=== PATIENT | female | born 1995 | race Caucasian/White ===

== ENCOUNTER 2017-06-12 07:58 | Observation (INO) | payer OTHER ==
[2017-06-12] VITALS (7 sets, daily range): BP systolic 105–130; BP diastolic 59–78; PULSE 75–112; RESP 16–24; TEMP 97.4–98.2; O2SAT 97–99
[~2017-06-12 07:58] MED LIST: GLUCTAB PO; IBUP800T23 PO; LEVO.025 PO; TYLE3 PO; ZOFR4TAB3 PO
[2017-06-12] MEDS ORDERED: ONDANSETRON HCL 4 MG/2 ML VIAL ONE (08:11)
[2017-06-12] MEDS ORDERED: LEVO25TA4 PO (08:21)
[2017-06-12] MEDS ORDERED: MELA5TAB15 PO (08:25)
--- NOTE | 2017-06-12 08:29 | PD ---
HPI Chief Complaint: GI Complaint Time Seen by Provider: 08:17 Travel History International Travel<30 days: No Contact w/Intl Traveler<30days: No Traveled to known affect area: No History of Present Illness HPI 22yo F with PMH of hypothyroidism and PCOS presents to the ED with c/o sudden onset of nausea, room spinning and palpitations when she was taking medication out today. 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 Had episode of NBNB vomiting. Denies any fever, cough, chest pain, sob, dysuria, vaginal discharge, focal weakness or numbness. Pt states she is on her menstrual period. Did not eat breakfast today. PFSH Past Medical History Blood Disorders: No Cancer: No Cardiovascular Problems: Yes High Cholesterol: Yes Developmental Delay: No Diabetes: No Diminished Hearing: No Endocrine: Yes Gastrointestinal Disorders: Yes (DIARRHEA/CONSTIPATION) Genitourinary: Yes (UTI'S) Hepatitis: No Hypertension: No Immune Disorder: No Medical other: Yes (POLYCYSTIC OVARIAN CYST) Musculoskeletal: No Neurologic: No Psychiatric: No Reproductive: Yes (POLYCYSTIC OVARY DISEASE) Respiratory: No Immunizations Current: Yes (MENINGITIS) Thyroid Disease: Yes Tetanus Vaccination: > 5 Years Influenza Vaccination: Yes ?: Not LMP: 06/11/17 Ovarian Cysts: Yes (POLYCYSTIC) Past Surgical History Cholecystectomy: Yes Other Surgery: Yes (nathan) Social History Alcohol Use: No Tobacco Use: No Substance Use: No Allergies-Medications (Allergen,Severity, Reaction): Coded Allergies: Vancomycin (Verified Allergy, Severe, Hives, 06/12/17) Neosporin (Unverified Allergy, Unknown, 06/12/17) Reported Meds & Prescriptions Reported Meds & Active Scripts Active Reported Melatonin 5 Mg Tab 5 Mg PO HS Levothyroxine (Levothyroxine Sodium) 25 Mcg Tab 25 Mcg PO DAILY Review of Systems Except as stated in HPI: all other systems reviewed are Neg Physical Exam Narrative GENERAL: 22yo F in mild distress. SKIN: Focused skin assessment warm/dry. HEAD: Atraumatic. Normocephalic. EYES: Pupils equal and round at 3mm bilaterally. No nystagmus. No scleral icterus. No injection or drainage. ENT: No nasal bleeding or discharge. Mucous membranes pink and moist. NECK: Trachea midline. No JVD. CARDIOVASCULAR: Regular rate and rhythm. No murmur appreciated. RESPIRATORY: No accessory muscle use. Clear to auscultation. Breath sounds equal bilaterally. GASTROINTESTINAL: Abdomen soft, non-tender, nondistended. MUSCULOSKELETAL: No obvious deformities. No clubbing. No cyanosis. No edema. NEUROLOGICAL: Awake and alert. No obvious cranial nerve deficits. Motor grossly within normal limits. Normal speech. PSYCHIATRIC: Appropriate mood and affect; insight and judgment normal. Data Data Last Documented VS Vital Signs Date Time Temp Pulse Resp B/P Pulse Ox O2 Delivery O2 Flow Rate FiO2 06/12/17 10:33 78 18 121/78 99 Room Air 06/12/17 08:00 97.4 Orders Ondansetron Inj (Zofran Inj) (06/12/17 08:11) Electrocardiogram (06/12/17 ) Ed Urine Pregnancytest Poc (06/12/17 08:23) Urinalysis - C+S If Indicated (06/12/17 08:23) Complete Blood Count With Diff (06/12/17 08:23) Comprehensive Metabolic Panel (06/12/17 08:23) Lipase (06/12/17 08:23) Sodium Chlor 0.9% 1000 Ml Inj (Ns 1000 M (06/12/17 08:30) Ondansetron Inj (Zofran Inj) (06/12/17 08:30) Meclizine (Antivert) (06/12/17 08:30) Urine Culture (06/12/17 08:45) Troponin I (06/12/17 09:07) Ceftriaxone Inj (Rocephin Inj) (06/12/17 10:15) Ondansetron Inj (Zofran Inj) (06/12/17 10:30) Metoclopramide Inj (Reglan Inj) (06/12/17 11:15) Place In Observation (06/12/17 ) Code Status (06/12/17 12:14) Vital Signs (Adult) Q4H (06/12/17 12:14) Activity Oob With Assistance (06/12/17 12:14) Engraver Copperplate / Telemetry .CONTINUOUS (06/12/17 12:14) Diet Regular Basic (06/12/17 Lunch) Sodium Chloride 0.9% Flush (Ns Flush) (06/12/17 12:15) Sodium Chloride 0.9% Flush (Ns Flush) (06/12/17 21:00) Acetaminophen (Tylenol) (06/12/17 12:15) Ondansetron Inj (Zofran Inj) (06/12/17 12:15) Temazepam (Restoril) (06/12/17 12:15) Basic Metabolic Panel (Bmp) (06/13/17 06:00) Complete Blood Count With Diff (06/13/17 06:00) Chest, Single Ap (06/12/17 12:14) Electrocardiogram (06/12/17 12:14) Pt Request For Service (06/12/17 12:14) Scd Bilateral/Knee High APOLONIA.BID (06/12/17 12:14) Naloxone Inj (Narcan Inj) (06/12/17 12:15) Magnesium Hydroxide Liq (Milk Of Magnesi (06/12/17 12:15) Beta Hcg (Quant/Titer) (06/12/17 12:14) Meclizine (Antivert) (06/12/17 14:00) Levothyroxine (Synthroid) (06/13/17 06:00) Melatonin (Melatonin) (06/12/17 21:00) Ns + Kcl 20 Meq Inj (Ns + Kcl 20 Meq Inj (06/12/17 12:30) Admit Order (Ed Use Only) (06/12/17 12:22) Labs Laboratory Tests Test 06/12/17 06/12/17 08:20 08:45 White Blood Count 8.6 TH/MM3 Red Blood Count 5.51 MIL/MM3 Hemoglobin 14.9 GM/DL Hematocrit 44.3 % Mean Corpuscular Volume 80.4 FL Mean Corpuscular Hemoglobin 27.1 PG Mean Corpuscular Hemoglobin 33.7 % Concent Red Cell Distribution Width 13.6 % Platelet Count 386 TH/MM3 Mean Platelet Volume 6.9 FL Neutrophils (%) (Auto) 62.7 % Lymphocytes (%) (Auto) 29.7 % Monocytes (%) (Auto) 4.4 % Eosinophils (%) (Auto) 2.7 % Basophils (%) (Auto) 0.5 % Neutrophils # (Auto) 5.4 TH/MM3 Lymphocytes # (Auto) 2.6 TH/MM3 Monocytes # (Auto) 0.4 TH/MM3 Eosinophils # (Auto) 0.2 TH/MM3 Basophils # (Auto) 0.0 TH/MM3 CBC Comment DIFF FINAL Differential Comment Sodium Level 137 MEQ/L Potassium Level 3.9 MEQ/L Chloride Level 101 MEQ/L Carbon Dioxide Level 23.5 MEQ/L Anion Gap 13 MEQ/L Blood Urea Nitrogen 10 MG/DL Creatinine 0.72 MG/DL Estimat Glomerular Filtration 100 ML/MIN Rate Random Glucose 90 MG/DL Calcium Level 9.6 MG/DL Total Bilirubin 0.3 MG/DL Aspartate Amino Transf 18 U/L (AST/SGOT) Alanine Aminotransferase 24 U/L (ALT/SGPT) Alkaline Phosphatase 73 U/L Troponin I LESS THAN 0.02 NG/ML Total Protein 8.3 GM/DL Albumin 3.8 GM/DL Lipase 126 U/L Urine Color LIGHT-YELLOW Urine Turbidity HAZY Urine pH 7.0 Urine Specific [place] 1.008 Urine Protein NEG mg/dL Urine Glucose (UA) NEG mg/dL Urine Ketones NEG mg/dL Urine Occult Blood NEG Urine Nitrite NEG Urine Bilirubin NEG Urine Urobilinogen LESS THAN 2.0 MG/DL Urine Leukocyte Esterase LARGE Urine RBC 1 /hpf Urine WBC 85 /hpf Urine Squamous Epithelial 1 /hpf Cells Urine Transitional Epithelial <1 /hpf Cells Urine Bacteria FEW /hpf Microscopic Urinalysis Comment CULTURE INDICATED MDM Medical Decision Making Medical Screen Exam Complete: Yes Emergency Medical Condition: Yes Interpretation(s) EKG: NSR 75bpm. DE depression diffusely. Differential Diagnosis Peripheral vertigo vs. arrhythmia vs. electrolyte abnormalities vs. vs. UTI Narrative Course 22yo F with c/o sudden onset spinning of the room with nausea and NBNB vomiting. Pt states it is worst with head movement. Clinically sounds like peripheral vertigo. Pt felt better after meclizine and zofran. However, when she walked to the bathroom, she felt nauseous again and another dose of zofran given. Labs reviewed, no leukocytosis. Troponin negative. UA showed large leukocyte. WBC 85. Pt given ceftriaxone 1gm IV. Pt reevaluated at bedside and still feels nauseous. Discussed with hospitalist and accepted to their service for observation. Diagnosis Primary Impression: Intractable nausea and vomiting Qualified Code: R11.2 - Intractable vomiting with nausea, unspecified vomiting type Additional Impression: Vertigo Admitting Information Admitting Physician Requests: Observation Scripts Ondansetron Odt 4 Mg Tab4 Mg SL Q8HR PRN (Nausea/Vomiting) #21 TAB Ref 0 Prov:Екатерина Marinelli PA-C 06/13/17 Cefuroxime 500 Mg [id number] Mg PO BID #6 TAB Ref 0 Prov:Екатерина Marinelli PA-C 06/13/17 Meclizine HCl (Meclizine 25)25 Mg Tab12.5 Mg PO Q8HR #21 TAB Prov:Екатерина Marinelli PA-C 06/13/17 Savannah Rwoe DO Jun 12, 2017 08:29
[2017-06-12] MEDS ORDERED: ONDANSETRON HCL 4 MG/2 ML VIAL IV PUSH ONE ×2 (08:30→10:30)
[2017-06-12] MEDS ORDERED: SODIUM CHLOR 0.9% 1000 ML INJ 1,000 ML IV ONE (08:30)
[2017-06-12] MEDS ORDERED: MECLIZINE HCL 25 MG TAB PO ONE (08:30)
[2017-06-12 08:44] LABS: AUTOMATED NEUTROPHIL # 5.4 TH/MM3 (1.8-7.7); BASOPHIL % 0.5 % (0.0-2.0); EOSINOPHIL # 0.2 TH/MM3 (0-0.4); EOSINOPHIL % 2.7 % (0.0-4.0); HEMATOCRIT 44.3 % (35.0-46.0); HEMO FLAGS DIFF FINAL; LYMPH % 29.7 % (9.0-44.0); LYMPHOCYTE # 2.6 TH/MM3 (1.0-4.8); MEAN CELL VOLUME 80.4 FL (80.0-100.0); MEAN CORPUSCULAR HEMOGLOBIN 27.1 PG (27.0-34.0); MEAN CORPUSCULAR HGB CONC 33.7 % (32.0-36.0); MONO % 4.4 % (0.0-8.0); NEUT % 62.7 % (16.0-70.0); PLATELET COUNT 386 TH/MM3 (150-450); RED BLOOD COUNT 5.51 MIL/MM3 (4.00-5.30); RED CELL DISTRIBUTION WIDTH 13.6 % (11.6-17.2); WHITE BLOOD COUNT 8.6 TH/MM3 (4.0-11.0)
[2017-06-12 09:01] LABS: BACTERIA, URINE FEW /hpf; BLOOD, URINE NEG (NEG); GLUCOSE,URINE NEG (NEG); KETONE, URINE NEG (NEG); NITRITE,URINE NEG (NEG); SQUAMOUS EPITHELIAL CELL URINE 1 /hpf (0-5); TRANSITIONAL EPI CELLS, URINE <1 /hpf; URINE COLOR LIGHT-YELLOW (YELLW/STRAW)
[2017-06-12 09:02] LABS: COMMENT (UR) CULTURE INDICATED; CULTURE IF INDICATED CULTURE INDICATED
[2017-06-12 09:08] LABS: ANION GAP 13 MEQ/L (5-15); AST (GOT) 18 U/L (15-37); BICARBONATE 23.5 MEQ/L (21.0-32.0); BLOOD UREA NITROGEN 10 MG/DL (7-18); CHLORIDE 101 MEQ/L (98-107); GLOMERULAR FILTRATION RATE 100 ML/MIN (>89); POTASSIUM 3.9 MEQ/L (3.5-5.1); SODIUM (NA) 137 MEQ/L (136-145)
[2017-06-12 09:11] LABS: ALKALINE PHOSPHATASE 73 U/L (45-117); ALT (GPT) 24 U/L (10-53); TOTAL BILIRUBIN ADULT 0.3 MG/DL (0.2-1.0)
[2017-06-12] MEDS ORDERED: cefTRIAXone INJ 1,000 MG in SODIUM CHLORIDE 0.9% INJ 100 ML IV ONE (10:15)
[2017-06-12] MEDS ORDERED: METOCLOPRAMIDE INJ 10 MG in SODIUM CHLORIDE 0.9% INJ 50 ML IV ONE (11:15)
[2017-06-12] MEDS ORDERED: SODIUM CHLORIDE 0.9% FLUSH 10 ML FLUSH IV FLUSH PRN (12:15)
[2017-06-12] MEDS ORDERED: NALOXONE HCL 0.4 MG/ML AMP IV PRN (12:15)
[2017-06-12] MEDS ORDERED: MAGNESIUM HYDROXIDE SUSP 30 ML CUP PO PRN (12:15)
[2017-06-12] MEDS ORDERED: ACETAMINOPHEN 325 MG TAB PO PRN (12:15)
[2017-06-12] MEDS ORDERED: TEMAZEPAM 15 MG CAP PO PRN (12:15)
[2017-06-12] MEDS: NS + KCL 20 MEQ INJ 1,000 ML IV SCH (13:20)
[2017-06-12 13:59] LABS: BETA HCG QUANT LESS THAN 1 MIU/ML (0-5)
--- NOTE | 2017-06-12 14:38 | RADRPT ---
EXAM DATE/TIME: 06/12/2017 12:27 [facility] COMPARISON: No previous studies available for comparison. INDICATIONS : Short of breath. MEDICAL HISTORY : None. SURGICAL HISTORY : None. ENCOUNTER: Initial ACUITY: 1 day PAIN SCORE: 0/10 LOCATION: Bilateral chest FINDINGS: A single view of the chest demonstrates the lungs to be symmetrically aerated without evidence of mas s, infiltrate or effusion. The cardiomediastinal contours are unremarkable. Osseous structures are intact. CONCLUSION: No acute disease. Best Solis MD on June 12, 2017 at 14:36 Board Certified Radiologist. This report was verified electronically.
[2017-06-12] MEDS: MECLIZINE HCL 25 MG TAB PO SCH ×4 (14:40→21:58)
--- NOTE | 2017-06-12 15:07 | HHI.HP ---
Dizziness, nausea and vomit. [facility] Felisha Harley MD Admission Diagnosis Intractable nausea Diagnoses: Chief Complaint: Sudden onset of Dizziness, nausea and vomit. 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 Review of Systems Gastrointestinal: COMPLAINS OF: Nausea, Vomiting Except as stated in HPI: all other systems reviewed are Neg Dizziness. Past Family Social History Past Medical History PCOS Hypothyroidism Obesity Past Surgical History Lap Cholecystectomy Reported Medications Reported Meds & Active Scripts Active Reported Melatonin 5 Mg Tab 5 Mg PO HS Levothyroxine (Levothyroxine Sodium) 25 Mcg Tab 25 Mcg PO DAILY Allergies: Coded Allergies: Vancomycin (Verified Allergy, Severe, Hives, 06/12/17) Neosporin (Unverified Allergy, Unknown, 06/12/17) Active Ordered Medications Current Medications Medications (Trade) Dose Ordered Sig/Kelley Route Start Time Stop Time Status Last Admin (NS Flush) 2 ml UNSCH PRN IV FLUSH 06/12/17 12:15 (NS Flush) 2 ml BID IV FLUSH 06/12/17 21:00 (Tylenol) 650 mg Q4H PRN PO 06/12/17 12:15 (Zofran Inj) 4 mg Q6H PRN IVP 06/12/17 12:15 (Restoril) 15 mg HS PRN PO 06/12/17 12:15 (Narcan Inj) 0.4 mg UNSCH PRN IV 06/12/17 12:15 (Milk Of Magnesia Liq) 30 ml Q12H PRN PO 06/12/17 12:15 (Antivert) 25 mg Q6H PO 06/12/17 14:00 06/12/17 14:40 (Synthroid) 25 mcg DAILY@06 PO 06/13/17 06:00 Melatonin 5 mg 5 mg HS PO 06/12/17 21:00 (NS + KCl 20 Meq Inj) 1,000 ml @ 85 mls/hr [id number] IV 06/12/17 12:30 06/12/17 13:20 Family History Mother with Hypertension Social History works as an Emergency Medicine Nurse denies any toxic habits. Physical Exam Vital Signs Vital Signs Date Time Temp Pulse Resp B/P Pulse Ox O2 Delivery O2 Flow Rate FiO2 06/12/17 10:33 78 18 121/78 99 Room Air 06/12/17 08:18 18 06/12/17 08:00 97.4 112 24 130/78 99 Room Air Physical Exam GENERAL: Obese patient, Well-developed patient, in no apparent distress. SKIN: No rashes, ecchymoses or lesions. Cool and dry. HEAD: Atraumatic. Normocephalic. No temporal or scalp tenderness. EYES: Pupils equal round and reactive. Extraocular motions intact. No scleral icterus. No injection or drainage. ENT: Nose without bleeding, purulent drainage or septal hematoma. Throat without erythema, tonsillar hypertrophy or exudate. Uvula midline. Airway patent. NECK: Trachea midline. No JVD or lymphadenopathy. Supple, nontender, no meningeal signs. CARDIOVASCULAR: Regular rate and rhythm without murmurs, gallops, or rubs. RESPIRATORY: Clear to auscultation. Breath sounds equal bilaterally. No wheezes , rales, or rhonchi. GASTROINTESTINAL: Abdomen soft, Mild Umbilical tenderness. MUSCULOSKELETAL: Extremities without clubbing, cyanosis, or edema. No joint tenderness, effusion, or edema noted. No calf tenderness. Negative Homans sign bilaterally. NEUROLOGICAL: Awake and alert. Cranial nerves II through XII intact. Motor and sensory grossly within normal limits. Five out of 5 muscle strength in all muscle groups. Normal speech. Laboratory Laboratory Tests Test 06/12/17 06/12/17 06/12/17 08:20 08:45 13:20 White Blood Count 8.6 Red Blood Count 5.51 Hemoglobin 14.9 Hematocrit 44.3 Mean Corpuscular Volume 80.4 Mean Corpuscular Hemoglobin 27.1 Mean Corpuscular Hemoglobin 33.7 Concent Red Cell Distribution Width 13.6 Platelet Count 386 Mean Platelet Volume 6.9 Neutrophils (%) (Auto) 62.7 Lymphocytes (%) (Auto) 29.7 Monocytes (%) (Auto) 4.4 Eosinophils (%) (Auto) 2.7 Basophils (%) (Auto) 0.5 Neutrophils # (Auto) 5.4 Lymphocytes # (Auto) 2.6 Monocytes # (Auto) 0.4 Eosinophils # (Auto) 0.2 Basophils # (Auto) 0.0 CBC Comment DIFF FINAL Differential Comment Sodium Level 137 Potassium Level 3.9 Chloride Level 101 Carbon Dioxide Level 23.5 Anion Gap 13 Blood Urea Nitrogen 10 Creatinine 0.72 Estimat Glomerular Filtration 100 Rate Random Glucose 90 Calcium Level 9.6 Total Bilirubin 0.3 Aspartate Amino Transf 18 (AST/SGOT) Alanine Aminotransferase 24 (ALT/SGPT) Alkaline Phosphatase 73 Troponin I LESS THAN 0.02 Total Protein 8.3 Albumin 3.8 Lipase 126 Urine Color LIGHT-YELLOW Urine Turbidity HAZY Urine pH 7.0 Urine Specific [place] 1.008 Urine Protein NEG Urine Glucose (UA) NEG Urine Ketones NEG Urine Occult Blood NEG Urine Nitrite NEG Urine Bilirubin NEG Urine Urobilinogen LESS THAN 2.0 Urine Leukocyte Esterase LARGE Urine RBC 1 Urine WBC 85 Urine Squamous Epithelial 1 Cells Urine Transitional Epithelial <1 Cells Urine Bacteria FEW Microscopic Urinalysis Comment CULTURE INDICATED Human Chorionic Gonadotropin, LESS THAN 1 Quant Date/Time Procedure Status Source Growth 06/12/17 08:45 Urine Culture Received Urine Clean Catch Pending Result Diagram: 06/12/17 0820 06/12/17 0820 Imaging Last Impressions Chest X-Ray 06/12/17 1214 Signed Impressions: Service Date/Time: May 12:27 - CONCLUSION: No acute disease. Best Solis MD Assessment and Plan Assessment and Plan Emergency Medicine Notes: 22yo F with PMH of hypothyroidism and PCOS presents to the ED with c/o sudden onset of nausea, room spinning and palpitations when she was taking medication out today. 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 Had episode of NBNB vomiting. Denies any fever, cough, chest pain, sob, dysuria , vaginal discharge, focal weakness or numbness. Pt states she is on her menstrual period. Did not eat breakfast today. 1. Urinary Tract Infection on Ceftriaxone following urine cultures. with general laboratory unremarkable 2. Obesity strongly recommended diet and exercise 3. Probable Peripheral Vertigo at this time even the laboratory is within normal limits she looks dehydrated will continue IV fluids. add Meclizine low dose. DVT prophylaxis with SCDs. complete laboratory with TSH and Lipid profile and follow up in am Code Status Full Code. Discussed Condition With Patient and Doctor Jose Dillard MD Jun 12, 2017 15:06
[2017-06-12] MEDS: ONDANSETRON HCL 4 MG/2 ML VIAL IVP PRN (18:00)
[2017-06-12 18:27] LABS: FREE T4 1.05 NG/DL (0.76-1.46); HDL CHOLESTEROL 34.4 MG/DL (40.0-60.0)
--- NOTE | 2017-06-12 19:11 | EKG ---
Date Performed: 06/12/2017 Time Performed: 08:28:53 PTAGE: 22 years EKG: Sinus rhythm WITH MARKED SINUS ARRHYTHMIA BORDERLINE ECG PREVIOUS TRACING : 06/06/2015 12.53 Compared to prior tracing no significant change DOCTOR: Vesna Liang Interpretating Date/Time 06/12/2017 19:09:57
[2017-06-12] MEDS: SODIUM CHLORIDE 0.9% FLUSH 10 ML FLUSH IV FLUSH SCH (20:22)
[2017-06-12] MEDS ORDERED: MELATONIN 5 MG TAB PO SCH (21:00)
[2017-06-13 00:15] VITALS: PULSE 80
[2017-06-13] MEDS: MECLIZINE HCL 25 MG TAB PO SCH ×3 (01:07→08:42)
[2017-06-13] MEDS: ONDANSETRON HCL 4 MG/2 ML VIAL IVP PRN ×2 (01:07→08:42)
[2017-06-13] MEDS: NS + KCL 20 MEQ INJ 1,000 ML IV SCH (01:07)
[2017-06-13 03:49] VITALS: BP 92/50; PULSE 76; RESP 16; TEMP 97.3; O2SAT 98
[2017-06-13] MEDS ORDERED: LEVOTHYROXINE SODIUM 25 MCG TAB PO SCH (06:00)
[2017-06-13 08:00] VITALS: BP 113/69; PULSE 76; RESP 20; TEMP 95.4; O2SAT 98
[2017-06-13 08:42] VITALS: PULSE 72
[2017-06-13] MEDS: SODIUM CHLORIDE 0.9% FLUSH 10 ML FLUSH IV FLUSH SCH (08:42)
[2017-06-13 09:26] LABS: AUTOMATED NEUTROPHIL # 4.5 TH/MM3 (1.8-7.7); BASOPHIL # 0.1 TH/MM3 (0-0.2); BASOPHIL % 0.7 % (0.0-2.0); EOSINOPHIL # 0.2 TH/MM3 (0-0.4); EOSINOPHIL % 2.3 % (0.0-4.0); HEMO FLAGS DIFF FINAL; LYMPH % 39.1 % (9.0-44.0); LYMPHOCYTE # 3.3 TH/MM3 (1.0-4.8); MEAN CELL VOLUME 80.4 FL (80.0-100.0); MEAN CORPUSCULAR HEMOGLOBIN 27.6 PG (27.0-34.0); MEAN CORPUSCULAR HGB CONC 34.4 % (32.0-36.0); MONO % 5.4 % (0.0-8.0); NEUT % 52.5 % (16.0-70.0); PLATELET COUNT 298 TH/MM3 (150-450); RED BLOOD COUNT 4.85 MIL/MM3 (4.00-5.30); RED CELL DISTRIBUTION WIDTH 13.5 % (11.6-17.2); WHITE BLOOD COUNT 8.5 TH/MM3 (4.0-11.0)
[2017-06-13] MEDS ORDERED: CEFU1TAB20 PO (09:32)
[2017-06-13] MEDS ORDERED: MECL1TAB42 PO (09:32)
--- NOTE | 2017-06-13 09:33 | HHI.DCPOC ---
Discharge Care Plan Diagnosis: (1) Vertigo (2) UTI (urinary tract infection) (3) Hyperlipidemia Goals to Promote Your Health * To prevent worsening of your condition and complications * To maintain your health at the optimal level Directions to Meet Your Goals Take your medications as prescribed Follow your dietary instruction Follow activity as directed Keep your appointments as scheduled Take your immunizations and boosters as scheduled If your symptoms worsen call your PCP, if no PCP go to Urgent Care Center or Emergency Room Smoking is Dangerous to Your Health. Avoid second hand smoke Call the 24-hour hour crisis hotline for domestic abuse at Екатерина Marinelli PA-C Jun 13, 2017 9:33 am
[2017-06-13 09:42] LABS: BICARBONATE 24.4 MEQ/L (21.0-32.0); POTASSIUM 3.8 MEQ/L (3.5-5.1)
[2017-06-13] MEDS ORDERED: ONDA4TAB7 SL (09:42)
[2017-06-13] MEDS ORDERED: cefTRIAXone INJ 1,000 MG in SODIUM CHLORIDE 0.9% INJ 100 ML IV ONE (10:00)
--- NOTE | 2017-06-13 10:05 | HHI.PR ---
Subjective Remarks Follow up for dizziness, vertigo, UTI. The patient reports feeling much better today. Had some nausea this morning however now improved and she was able to tolerate her breakfast. Denies any further dizziness. Denies any fever/chills or urinary complaints. She feel ready for discharge. Objective Vitals Vital Signs Date Time Temp Pulse Resp B/P Pulse Ox O2 Delivery O2 Flow Rate FiO2 06/13/17 08:00 95.4 76 20 113/69 98 06/13/17 03:49 97.3 76 16 92/50 98 06/13/17 00:15 80 06/12/17 23:42 97.9 75 16 105/59 97 06/12/17 20:05 98.1 86 18 117/59 97 06/12/17 16:00 98.2 83 18 118/70 97 06/12/17 15:06 82 06/12/17 14:00 98.0 82 20 117/72 98 06/12/17 10:33 78 18 121/78 99 Room Air I/O 06/12/17 06/12/17 06/12/17 06/13/17 06/13/17 06/13/17 06:59 14:59 22:59 06:59 14:59 22:59 Intake Total 500 ml Balance 500 ml Intake IV Total 500 ml # Voids 2 Result Diagram: 06/13/17 0850 06/13/17 0850 Imaging Last Impressions Chest X-Ray 06/12/17 1214 Signed Impressions: Service Date/Time: May 12:27 - CONCLUSION: No acute disease. Best Solis MD Objective Remarks GENERAL: Well-nourished, well-developed young obese female patient in [facility]. SKIN: Warm and dry. No rash. HEENT: Normocephalic. Atraumatic. Pupils equal and round. Mucous membranes pink and moist. NECK: Supple. Trachea midline. CARDIOVASCULAR: Regular rate and rhythm. S1, S2 noted. No murmur appreciated. RESPIRATORY: No accessory muscle use. Clear to auscultation. Breath sounds equal bilaterally. GASTROINTESTINAL: Abdomen soft, non-tender, nondistended. Normoactive bowel sounds x4. MUSCULOSKELETAL: No obvious deformities. Extremities without clubbing, cyanosis , or edema. NEUROLOGICAL: Awake and alert. No obvious cranial nerve deficits. Motor grossly within normal limits. Normal speech. PSYCHIATRIC: Appropriate mood and affect; insight and judgment normal. Medications and IVs Current Medications Medications (Trade) Dose Ordered Sig/Kelley Route Start Time Stop Time Status Last Admin (NS Flush) 2 ml UNSCH PRN IV FLUSH 06/12/17 12:15 (NS Flush) 2 ml BID IV FLUSH 06/12/17 21:00 06/13/17 08:42 (Tylenol) 650 mg Q4H PRN PO 06/12/17 12:15 (Zofran Inj) 4 mg Q6H PRN IVP 06/12/17 12:15 06/13/17 08:42 (Restoril) 15 mg HS PRN PO 06/12/17 12:15 (Narcan Inj) 0.4 mg UNSCH PRN IV 06/12/17 12:15 (Milk Of Magnesia Liq) 30 ml Q12H PRN PO 06/12/17 12:15 (Synthroid) 25 mcg DAILY@06 PO 06/13/17 06:00 06/13/17 05:05 Melatonin 5 mg 5 mg HS PO 06/12/17 21:00 (NS + KCl 20 Meq Inj) 1,000 ml @ 85 mls/hr [id number] IV 06/12/17 12:30 06/13/17 01:07 Meclizine HCl 12.5 mg 12.5 mg Q8HR PO 06/12/17 17:00 06/13/17 05:05 (Rocephin Inj/NS Inj) 100 ml @ 200 mls/hr ONCE ONCE IV 06/13/17 10:00 06/13/17 10:29 A/P Assessment and Plan 22yo F with PMH of hypothyroidism and PCOS presents to the ED with c/o sudden onset of dizziness, nausea/vomiting, and palpitations while at work today. Pt states she is on her menstrual period and did not eat breakfast today. Urinary Tract Infection: UA with large leuks and WBCs. Afebrile, no leukocytosis. Continued on IV Ceftriaxone. Monitor urine culture, pending at discharge. Discharged on cefuroxime 500mg bid x3days. Obesity: strongly recommended diet and exercise, patient verbalized understanding. Benign paroxysmal positional vertigo: patient presented with acute dizziness/ nausea/vomiting. Given IVF hydration, Meclizine scheduled and IV Zofran prn. Patient's symptoms much improved. Hypertriglyceridemia/Hyperlipidemia: discussed diet/exercise and repeat lipid panel in 3 months; patient verbalized understanding, states she was aware of high cholesterol and has been following with her PCP. DVT prophylaxis with SCDs. Discharge Planning Discharge patient to home Condition on discharge: Improved Heart healthy/low fat Diet as tolerated Ad Joanna activity Rx written: Meclizine, Zofran prn, Cefuroxime 500mg bid x3days Follow-up with primary care physician Dr. Harley Attending Statement The exam, history, and the medical decision-making described in the above note were completed with the assistance of the mid-level provider. I reviewed and agree with the findings presented. I attest that I had a [id number] encounter with the patient on the same day, and personally performed and documented my assessment and findings in the medical record. Екатерина Marinelli PA-C Jun 13, 2017 10:05 Jose Edmonds MD Jun 13, 2017 17:16
--- NOTE | 2017-06-13 14:55 | EKG ---
Date Performed: 06/12/2017 Time Performed: 14:48:49 PTAGE: 22 years EKG: Sinus rhythm NORMAL ECG PREVIOUS TRACING : 06/12/2017 08.28 Compared to prior tracing no significant change DOCTOR: Speedy Bob Interpretating Date/Time 06/13/2017 14:51:58
== END 2017-06-13 11:46 | disposition home or self-care (01) ==
LOC: NEPC 07:58 → NEDA 12:25 → NEPHCDU 13:52
PROVIDERS: ADMIT Internal Medicine; ATTEND Internal Medicine
DX: N39.0 Urinary tract infection, site not specified (principal); E86.0 Dehydration; E03.9 Hypothyroidism, unspecified; E28.2 Polycystic ovarian syndrome; R06.02 Shortness of breath; I49.8 Other specified cardiac arrhythmias; H81.10 Benign paroxysmal vertigo, unspecified ear; R11.2 Nausea with vomiting, unspecified; E78.5 Hyperlipidemia, unspecified; E78.00 Pure hypercholesterolemia, unspecified; E78.1 Pure hyperglyceridemia; E66.9 Obesity, unspecified; Z79.899 Other long term (current) drug therapy
CPT/HCPCS: 71010; 80048; 80053; 80061; 81001; 83690; 84439; 84443; 84484; 84702; 84703; 85025; 87086; 93005; 96361; 96365; 96375; 96376; 99285; G0378; J0696; J2405; J2765; J3480; J7030

== ENCOUNTER 2017-11-29 19:20 | Emergency (ER) | payer OTHER ==
[~2017-11-29] VITALS: Ht 152.4 cm; Wt 82.0 kg
[~2017-11-29 19:20] MED LIST changes: +CEFU1TAB20 PO; -GLUCTAB PO; -IBUP800T23 PO; -LEVO.025 PO; +LEVO25TA4 PO; +MECL1TAB42 PO; +MELA5 PO; +ONDA4TAB7 SL; -TYLE3 PO; -ZOFR4TAB3 PO
[2017-11-29 19:22] VITALS: BP 146/89; PULSE 120; RESP 16; TEMP 96.7; O2SAT 99
[2017-11-29] MEDS ORDERED: SODIUM CHLOR 0.9% 1000 ML INJ 1,000 ML IV ONE ×2 (20:30→21:30)
[2017-11-29] MEDS ORDERED: ONDANSETRON HCL 4 MG/2 ML VIAL IV ONE (20:30)
--- NOTE | 2017-11-29 20:55 | PD ---
HPI Chief Complaint: Numbness/Tingling Time Seen by Provider: 20:29 Travel History International Travel<30 days: No Contact w/Intl Traveler<30days: No Traveled to known affect area: No History of Present Illness HPI 22 year-old woman, status post vertical sleeve gastrectomy about [address] Bennett. History of significant trouble with nausea vomiting both in the past, and immediately postop. She was doing well until she states she developed some sinus infection and has been having nausea and vomiting for the past couple days. She states she's not been able to keep her vitamins down for 2-3 days. Starting yesterday she started getting tingling up and down both her arms and legs, elevation, and feeling generally unwell. She does presents to the emergency department. Symptoms been constant, worsening since onset. History Past Medical History Narrative Medical PCOS Tetanus Vaccination: > 5 Years Influenza Vaccination: Yes Social History Alcohol Use: No Tobacco Use: No Allergies-Medications (Allergen,Severity, Reaction): Coded Allergies: vancomycin (Unverified Allergy, Severe, Hives, 11/29/17) bacitracin (Unverified Allergy, Unknown, 11/29/17) gramicidin D (Unverified Allergy, Unknown, 11/29/17) neomycin (Unverified Allergy, Unknown, 11/29/17) polymyxin B (Unverified Allergy, Unknown, 11/29/17) Reported Meds & Prescriptions Reported Meds & Active Scripts Active Review of Systems Except as stated in HPI: all other systems reviewed are Neg Physical Exam Narrative GENERAL: Well-appearing 22 old woman, no acute distress. SKIN: Focused skin assessment warm/dry. HEAD: Atraumatic. Normocephalic. EYES: Pupils equal and round. No scleral icterus. No injection or drainage. ENT: No nasal bleeding or discharge. Mucous membranes pink and moist. NECK: Trachea midline. No JVD. CARDIOVASCULAR: Regular rate and rhythm. No murmur appreciated. RESPIRATORY: No accessory muscle use. Clear to auscultation. Breath sounds equal bilaterally. GASTROINTESTINAL: Abdomen soft, non-tender, nondistended. Hepatic and splenic margins not palpable. MUSCULOSKELETAL: No obvious deformities. No clubbing. No cyanosis. No edema. NEUROLOGICAL: Awake and alert. No obvious cranial nerve deficits. Motor grossly within normal limits. Normal speech. PSYCHIATRIC: Appropriate mood and affect; insight and judgment normal. Data Data Last Documented VS Vital Signs Date Time Temp Pulse Resp B/P (MAP) Pulse Ox O2 Delivery O2 Flow Rate FiO2 11/29/17 19:22 96.7 120 16 146/89 (108) 99 Room Air Orders Orders Complete Blood Count With Diff (11/29/17 20:29) Comprehensive Metabolic Panel (11/29/17 20:29) Magnesium (Mg) (11/29/17 20:29) Iv Access Insert/Monitor (11/29/17 20:29) Electrocardiogram (11/29/17 ) Sodium Chlor 0.9% 1000 Ml Inj (Ns 1000 M (11/29/17 20:30) Ondansetron Inj (Zofran Inj) (11/29/17 20:30) Sodium Chlor 0.9% 1000 Ml Inj (Ns 1000 M (11/29/17 21:30) Thiamine Inj (Thiamine Inj) (11/29/17 21:30) Potassium Chlor 20 Meq Premix (Kcl 20 Me (11/29/17 21:30) Labs Laboratory Tests Test 11/29/17 20:45 White Blood Count 10.7 TH/MM3 Red Blood Count 5.78 MIL/MM3 Hemoglobin 15.7 GM/DL Hematocrit 46.6 % Mean Corpuscular Volume 80.6 FL Mean Corpuscular Hemoglobin 27.1 PG Mean Corpuscular Hemoglobin Concent 33.6 % Red Cell Distribution Width 13.4 % Platelet Count 357 TH/MM3 Mean Platelet Volume 7.5 FL Neutrophils (%) (Auto) 69.2 % Lymphocytes (%) (Auto) 17.6 % Monocytes (%) (Auto) 7.5 % Eosinophils (%) (Auto) 5.2 % Basophils (%) (Auto) 0.5 % Neutrophils # (Auto) 7.4 TH/MM3 Lymphocytes # (Auto) 1.9 TH/MM3 Monocytes # (Auto) 0.8 TH/MM3 Eosinophils # (Auto) 0.6 TH/MM3 Basophils # (Auto) 0.1 TH/MM3 CBC Comment DIFF FINAL Differential Comment Blood Urea Nitrogen 6 MG/DL Creatinine 0.68 MG/DL Random Glucose 70 MG/DL Total Protein 9.5 GM/DL Albumin 4.3 GM/DL Calcium Level 9.8 MG/DL Magnesium Level 1.9 MG/DL Alkaline Phosphatase 86 U/L Aspartate Amino Transf (AST/SGOT) 15 U/L Alanine Aminotransferase (ALT/SGPT) 23 U/L Total Bilirubin 0.3 MG/DL Sodium Level 137 MEQ/L Potassium Level 3.2 MEQ/L Chloride Level 97 MEQ/L Carbon Dioxide Level 24.6 MEQ/L Anion Gap 15 MEQ/L Estimat Glomerular Filtration Rate 106 ML/MIN [facility] Medical Decision Making Medical Screen Exam Complete: Yes Emergency Medical Condition: Yes Interpretation(s) My review of EKG: Sinus tachycardia rate of 106, normal axis, normal intervals, some nonspecific inferior T-wave flattening, no definite evidence of acute ischemia or electrolyte abnormality. LABS: CBC remarkable for elevated H&H. CMP remarkable for slightly low potassium 3.2. Total protein 9.5. Differential Diagnosis Electrolyte abnormality, dehydration, anxiety, hyperventilation, vomiting, other Narrative Course Medical decision making INITIAL: Is a 22 old woman who presents to the emergency department with nausea vomiting following vertical sleeve gastrectomy for bariatric surgery. Looks well. History of trouble with nausea and vomiting. We'll check labs, fluids, antiemetics, reassess. FINAL: Patient looks well. A little bit dehydrated. Potassium 3.2. Looks well. We'll place her on scheduled Zofran, Phenergan when necessary. Physician Communication Physician Communication Spoke with Dr. Bennett. Will see patient on Friday. Request some IV thiamine. Diagnosis Primary Impression: Nausea & vomiting Additional Impression: Hypokalemia Additional Instructions: Use Zofran 3 times daily as scheduled. Use Phenergan suppositories in addition as needed for nausea or vomiting. Take vitamins and supplements as prescribed by Dr. Bennett. Follow-up with Dr. Bennett on Friday. Return to the emergency department for any new or worsening symptoms. Med/Other Pt SpecificInfo: Prescription(s) given Scripts Promethazine Supp (Promethazine Supp) 25 Mg Supp 25 MG RECTAL Q6H Y for NAUSEA OR VOMITING, #15 SUPP 0 Refills Prov: Sanya Mart MD 11/29/17 Ondansetron Odt (Ondansetron Odt) 4 Mg Tab 4 MG SL Q8HR, #30 TAB 0 Refills Prov: Sanya Mart MD 11/29/17 Disposition: 01 DISCHARGE HOME Condition: Stable Sanya Mart MD Nov 29, 2017 20:55
[2017-11-29 20:58] LABS: AUTOMATED NEUTROPHIL # 7.4 TH/MM3 (1.8-7.7); BASOPHIL # 0.1 TH/MM3 (0-0.2); BASOPHIL % 0.5 % (0.0-2.0); EOSINOPHIL # 0.6 TH/MM3 (0-0.4); EOSINOPHIL % 5.2 % (0.0-4.0); HEMATOCRIT 46.6 % (35.0-46.0); HEMOGLOBIN 15.7 GM/DL (11.6-15.3); LYMPH % 17.6 % (9.0-44.0); LYMPHOCYTE # 1.9 TH/MM3 (1.0-4.8); MEAN CELL VOLUME 80.6 FL (80.0-100.0); MEAN CORPUSCULAR HEMOGLOBIN 27.1 PG (27.0-34.0); MEAN CORPUSCULAR HGB CONC 33.6 % (32.0-36.0); MEAN PLATELET VOLUME 7.5 FL (7.0-11.0); MONO % 7.5 % (0.0-8.0); MONOCYTE # 0.8 TH/MM3 (0-0.9); NEUT % 69.2 % (16.0-70.0); PLATELET COUNT 357 TH/MM3 (150-450); RED BLOOD COUNT 5.78 MIL/MM3 (4.00-5.30); RED CELL DISTRIBUTION WIDTH 13.4 % (11.6-17.2); WHITE BLOOD COUNT 10.7 TH/MM3 (4.0-11.0)
[2017-11-29 21:13] LABS: ALBUMIN 4.3 GM/DL (3.4-5.0); ALT (GPT) 23 U/L (10-53); AST (GOT) 15 U/L (15-37); BICARBONATE 24.6 MEQ/L (21.0-32.0); BLOOD UREA NITROGEN 6 MG/DL (7-18); CALCIUM 9.8 MG/DL (8.5-10.1); CHLORIDE 97 MEQ/L (98-107); CREATININE 0.68 MG/DL (0.50-1.00); GLOMERULAR FILTRATION RATE 106 ML/MIN (>89); GLUCOSE,RANDOM 70 MG/DL (74-106); MAGNESIUM 1.9 MG/DL (1.5-2.5); SODIUM (NA) 137 MEQ/L (136-145)
[2017-11-29 21:16] LABS: ALKALINE PHOSPHATASE 86 U/L (45-117); TOTAL BILIRUBIN ADULT 0.3 MG/DL (0.2-1.0); TOTAL PROTEIN 9.5 GM/DL (6.4-8.2)
[2017-11-29] MEDS ORDERED: THIAMINE INJ 100 MG in SODIUM CHLORIDE 0.9% INJ 100 ML IV ONE (21:30)
[2017-11-29] MEDS ORDERED: POTASSIUM CHLOR 20 MEQ PREMIX 100 ML IV ONE (21:30)
[2017-11-29] MEDS ORDERED: PROM1SUP9 RECTAL (22:30)
[2017-11-29] MEDS ORDERED: ONDA4TAB7 SL (22:30)
[2017-11-30 01:00] VITALS: BP 109/58; PULSE 78; RESP 16; O2SAT 98
--- NOTE | 2017-11-30 13:55 | EKG ---
Date Performed: 11/29/2017 Time Performed: 20:38:14 PTAGE: 22 years EKG: SINUS TACHYCARDIA NONSPECIFIC T-WAVE ABNORMALITY ABNORMAL RHYTHM ECG Compared to PREVIOUS TRACING , heart is faster and the ST-T changes are new. PREVIOUS TRACIN2016 14.48 DOCTOR: Rajinder Fuentes Interpretating Date/Time 11/30/2017 13:54:40
== END 2017-11-30 01:03 | disposition home or self-care (01) ==
LOC: NEPD 19:20
DX: R11.2 Nausea with vomiting, unspecified (principal); E87.6 Hypokalemia; R20.2 Paresthesia of skin; R00.0 Tachycardia, unspecified; R94.31 Abnormal electrocardiogram [ECG] [EKG]; Z88.5 Allergy status to narcotic agent; Z88.8 Allergy status to other drugs, medicaments and biological substances
CPT/HCPCS: 80053; 83735; 85025; 93005; 96361; 96365; 96366; 96375; 99284; J2405; J3411; J3480; J7030

== ENCOUNTER 2018-03-16 05:44 | Emergency (ER) | payer OTHER ==
[~2018-03-16 05:44] MED LIST changes: -CEFU1TAB20 PO; -LEVO25TA4 PO; -MECL1TAB42 PO; -MELA5 PO; +PROM1SUP9 RECTAL
[2018-03-16 05:53] VITALS: BP 131/59; PULSE 76; RESP 15; TEMP 97.5; O2SAT 100
[2018-03-16 06:03] VITALS: O2SAT 100
[2018-03-16] MEDS ORDERED: SODIUM CHLOR 0.9% 250 ML INJ 250 ML IV ONE (06:15)
--- NOTE | 2018-03-16 06:27 | PD ---
HPI Chief Complaint: Bleeding Time Seen by Provider: 05:59 Travel History International Travel<30 days: No Contact w/Intl Traveler<30days: No Traveled to known affect area: No History of Present Illness HPI The patient is a 22 year old female who presents to the [facility] emergency department with a history of vaginal spotting that she reports began just after she had vertical gastric sleeve surgery in October. She reports that since the beginning of the year she has had a 60 pound weight loss. She reports that she lost 30 pounds on her own and then 30 pounds with the surgery. She reports having history of polycystic ovarian syndrome. Her caster operator is Dr. Xiao. She reports that prior to having the gastric sleeve done she had not had a menstrual cycle for a year and a half. She reports that she is continued to have intermittent spotting since the surgery, however yesterday the bleeding became heavy. She reports that she used 4 pads yesterday. She reports that she then awoke from sound sleep at 4 AM with severe cramping. She reports that the pain is a 7 out of 10 in severity. She reports having nausea and diaphoresis with lightheaded sensation. She reports that she got up to use the restroom and passed several blood clots from her vagina. She reports that she also had one episode of diarrhea. The patient reports having shortness of breath with exertion since the onset of this at 4 AM. On review of systems otherwise, she denies having any known recent fevers, cough, congestion, neck pain, chest pain, vomiting, urinary symptoms, or neurologic symptoms. [facility] Past Medical History Narrative Medical The patient's past medical history is significant for hypothyroid disorder, polycystic ovarian syndrome Blood Disorders: No Cancer: No Cardiovascular Problems: Yes High Cholesterol: Yes Developmental Delay: No Diabetes: No Diminished Hearing: No Endocrine: Yes Gastrointestinal Disorders: Yes (DIARRHEA/CONSTIPATION) Genitourinary: Yes (UTI'S) Hepatitis: No Hypertension: No Immune Disorder: No Implanted Vascular Access Dvce: No Medical other: Yes (POLYCYSTIC OVARIAN CYST) Musculoskeletal: No Neurologic: No Psychiatric: No Reproductive: Yes (POLYCYSTIC OVARY DISEASE) Respiratory: No Immunizations Current: Yes (MENINGITIS) Thyroid Disease: Yes ?: Not LMP: 01/2018 Ovarian Cysts: Yes (POLYCYSTIC) Past Surgical History Narrative Surgical The patient's past surgical history is significant for gastric sleeve, cholecystectomy Cholecystectomy: Yes Other Surgery: Yes (nathan) Social History Alcohol Use: No Tobacco Use: No Substance Use: No Allergies-Medications (Allergen,Severity, Reaction): Coded Allergies: vancomycin (Unverified Allergy, Severe, Hives, 03/16/18) bacitracin (Unverified Allergy, Unknown, 03/16/18) gramicidin D (Unverified Allergy, Unknown, 03/16/18) neomycin (Unverified Allergy, Unknown, 03/16/18) polymyxin B (Unverified Allergy, Unknown, 03/16/18) Reported Meds & Prescriptions Reported Meds & Active Scripts Active Promethazine Supp (Promethazine HCl) 25 Mg Supp 25 Mg RECTAL Q6H PRN Ondansetron Odt 4 Mg Tab 4 Mg SL Q8HR Review of Systems Except as stated in HPI: all other systems reviewed are Neg General / Constitutional: No: Fever Eyes: No: Visual changes HENT: No: Headaches Cardiovascular: No: Chest Pain or Discomfort Respiratory: No: Shortness of Breath Gastrointestinal: Positive: Nausea, Diarrhea, Abdominal Pain, Changes in Bowel Habits, No: Vomiting, Indigestion, Loss of Appetite Genitourinary: Positive: Pelvic Pain, Vaginal Bleeding, No: Dysuria Musculoskeletal: No: Pain Skin: No Rash Neurologic: No: Weakness Psychiatric: No: Depression Endocrine: No: Polydipsia Hematologic/Lymphatic: No: Easy Bruising Physical Exam Narrative General: The patient is a well-developed well-nourished female, pale appearing on arrival , otherwise in no acute distress. Head and Neck exam: Head is normocephalic atraumatic. Eyes: EOMI, pupils are equal round and reactive to light. Nose: Midline septum with pink mucous membranes Mouth: Dentition unremarkable. Moist mucus membranes. Posterior oropharynx is not erythematous. No tonsillar hypertrophy. Uvula midline. Airway patent. Neck: No palpable lymphadenopathy. No nuchal rigidity. No thyromegaly. Cardiovascular: Regular rate and rhythm without murmurs, gallops, or rubs. No pulse deficit to the extremities on simultaneous auscultation and palpation of her radial art. Lungs: Clear to auscultation bilaterally. No wheezes, rhonchi, or rales. Abdomen: Soft, with tenderness on palpation of the suprapubic area, no other tenderness on palpation of the other quadrants of the abdomen. No guarding, rebound, or rigidity. Normal bowel sounds are audible. No tenderness on palpation of McBurney's point. Negative Gifford sign. Extremities: No clubbing, cyanosis, or edema. 2+ pulses in all 4 extremities. No calf tenderness on palpation. Back: No spinous process tenderness to palpation. No costovertebral angle tenderness to palpation. Neurologic Exam: Grossly nonfocal. Skin Exam: No rash noted. Intact skin that is warm and dry. Gynecologic exam: The patient was placed in the dorsal lithotomy position. Her external genitalia were examined. She had no evidence of rash or lesions. The speculum was placed into her vagina and the cervix was identified. She had a moderate amount of vaginal bleeding noted. A small dime size clot was removed with a large swab. No cervical friability. On Bimanual exam: she has no cervical motion tenderness. The patient reports having adnexal tenderness on palpation on the right side. No palpable enlargement adnexal enlargement. No uterine tenderness or enlargement noted on palpation. Data Data Last Documented VS Vital Signs Date Time Temp Pulse Resp B/P (MAP) Pulse Ox O2 Delivery O2 Flow Rate FiO2 03/16/18 07:12 71 18 119/56 (77) 98 Room Air 03/16/18 05:53 97.5 Orders Orders Complete Blood Count With Diff (03/16/18 06:01) Comprehensive Metabolic Panel (03/16/18 06:01) Prothrombin Time / Inr (Pt) (03/16/18 06:01) Act Partial Throm Time (Ptt) (03/16/18 06:01) Lipase (03/16/18 06:01) Urinalysis - C+S If Indicated (03/16/18 06:01) Magnesium (Mg) (03/16/18 06:01) Thyroid Stimulating Hormone (03/16/18 06:01) Iv Access Insert/Monitor (03/16/18 06:01) Ecg Monitoring (03/16/18 06:01) Oximetry (03/16/18 06:01) Ed Urine Pregnancytest Poc (03/16/18 06:01) Orthostatic Vital Signs (03/16/18 06:01) Type And Screen (03/16/18 06:12) Sodium Chlor 0.9% 250 Ml Inj (Ns 250 Ml (03/16/18 06:15) Gc And Chlamydia Pcr (03/16/18 06:51) Wet Prep Profile (03/16/18 06:51) Us Pelvis Comp W Doppler (03/16/18 06:51) Sodium Chlor 0.9% 1000 Ml Inj (Ns 1000 M (03/16/18 07:00) Morphine Inj (Morphine Inj) (03/16/18 07:00) Ondansetron Inj (Zofran Inj) (03/16/18 07:00) Labs Laboratory Tests Test 03/16/18 06:10 03/16/18 06:20 03/16/18 06:53 White Blood Count 9.4 TH/MM3 Red Blood Count 4.92 MIL/MM3 Hemoglobin 13.6 GM/DL Hematocrit 40.9 % Mean Corpuscular Volume 83.2 FL Mean Corpuscular Hemoglobin 27.6 PG Mean Corpuscular Hemoglobin Concent 33.2 % Red Cell Distribution Width 14.2 % Platelet Count 353 TH/MM3 Mean Platelet Volume 7.4 FL Neutrophils (%) (Auto) 59.3 % Lymphocytes (%) (Auto) 34.2 % Monocytes (%) (Auto) 4.5 % Eosinophils (%) (Auto) 1.5 % Basophils (%) (Auto) 0.5 % Neutrophils # (Auto) 5.6 TH/MM3 Lymphocytes # (Auto) 3.2 TH/MM3 Monocytes # (Auto) 0.4 TH/MM3 Eosinophils # (Auto) 0.1 TH/MM3 Basophils # (Auto) 0.0 TH/MM3 CBC Comment DIFF FINAL Differential Comment Clue Cells (Wet Prep) NONE SEEN Vaginal Trichomonas (Wet Prep) NONE SEEN Vaginal Yeast (Wet Prep) NONE SEEN MDM Medical Decision Making Medical Screen Exam Complete: Yes Emergency Medical Condition: Yes Medical Record Reviewed: Yes Differential Diagnosis Symptomatic anemia, versus dysfunctional uterine bleed, versus ectopic Narrative Course During the course of the patient's emergency department visit, the patient's history, examination, and differential diagnosis were reviewed with the patient. The patient was placed on a quality assurance monitor with oximetry and frequent blood pressure monitoring. The patient had IV access obtained and blood work sent for analysis. A bedside test was done. The test was negative. An ultrasound to evaluate for possible ovarian torsion has been ordered per The patient was initially provided normal saline 1 L IV fluid bolus, morphine 2 mg IV, Zofran 4 mg IV. The patient's laboratory studies were reviewed and remarkable for a white count of 9.4, hemoglobin 13.6, platelets 353 within normal differential, wet prep is negative. Laboratory studies and imaging studies are pending at the conclusion of my shift. The patient's case was checked out to the oncoming emergency physician to disposition the patient based on the conclusion of her workup. Diagnosis Primary Impression: Dysfunctional uterine bleeding Angela Joshi MD Mar 16, 2018 06:27
[2018-03-16] MEDS ORDERED: SODIUM CHLOR 0.9% 1000 ML INJ 1,000 ML IV ONE (07:00)
[2018-03-16] MEDS ORDERED: ONDANSETRON HCL 4 MG/2 ML VIAL IV PUSH ONE (07:00)
[2018-03-16] MEDS ORDERED: MORPHINE SULFATE 2 MG/ML SYRINGE IV PUSH ONE (07:00)
[2018-03-16 07:12] VITALS: BP 119/56; PULSE 71; RESP 18; O2SAT 98
[2018-03-16 07:13] LABS: AUTOMATED NEUTROPHIL # 5.6 TH/MM3 (1.8-7.7); BASOPHIL % 0.5 % (0.0-2.0); EOSINOPHIL # 0.1 TH/MM3 (0-0.4); EOSINOPHIL % 1.5 % (0.0-4.0); HEMATOCRIT 40.9 % (35.0-46.0); HEMOGLOBIN 13.6 GM/DL (11.6-15.3); LYMPH % 34.2 % (9.0-44.0); LYMPHOCYTE # 3.2 TH/MM3 (1.0-4.8); MEAN CELL VOLUME 83.2 FL (80.0-100.0); MEAN CORPUSCULAR HEMOGLOBIN 27.6 PG (27.0-34.0); MEAN CORPUSCULAR HGB CONC 33.2 % (32.0-36.0); MEAN PLATELET VOLUME 7.4 FL (7.0-11.0); MONO % 4.5 % (0.0-8.0); MONOCYTE # 0.4 TH/MM3 (0-0.9); NEUT % 59.3 % (16.0-70.0); PLATELET COUNT 353 TH/MM3 (150-450); RED BLOOD COUNT 4.92 MIL/MM3 (4.00-5.30); RED CELL DISTRIBUTION WIDTH 14.2 % (11.6-17.2); WHITE BLOOD COUNT 9.4 TH/MM3 (4.0-11.0)
[2018-03-16 07:18] LABS: BACTERIA, URINE MOD /hpf; BILIRUBIN, URINE NEG (NEG); BLOOD, URINE LARGE (NEG); GLUCOSE,URINE NEG (NEG); KETONE, URINE 40 mg/dL (NEG); NITRITE,URINE NEG (NEG); SQUAMOUS EPITHELIAL CELL URINE 11 /hpf (0-5); URINE LEUKOCYTE ESTERASE SMALL (NEG)
[2018-03-16 07:19] LABS: URINE COLOR RED (YELLW/STRAW)
[2018-03-16 07:24] LABS: PROTHROMBIN TIME - PATIENT 10.2 SEC (9.8-11.6)
[2018-03-16 07:32] LABS: ALBUMIN 3.7 GM/DL (3.4-5.0); ALT (GPT) 16 U/L (10-53); AST (GOT) 8 U/L (15-37); BICARBONATE 24.7 MEQ/L (21.0-32.0); BLOOD UREA NITROGEN 6 MG/DL (7-18); CALCIUM 8.8 MG/DL (8.5-10.1); CHLORIDE 106 MEQ/L (98-107); CREATININE 0.62 MG/DL (0.50-1.00); GLOMERULAR FILTRATION RATE 118 ML/MIN (>89); GLUCOSE,RANDOM 118 MG/DL (74-106); SODIUM (NA) 142 MEQ/L (136-145)
[2018-03-16 07:41] LABS: ALKALINE PHOSPHATASE 61 U/L (45-117); TOTAL BILIRUBIN ADULT 0.3 MG/DL (0.2-1.0); TOTAL PROTEIN 7.3 GM/DL (6.4-8.2)
[2018-03-16] MEDS ORDERED: KETOROLAC TROMETHAMINE 30 MG/ML (IVP) VIAL IV PUSH ONE (08:45)
[2018-03-16] MEDS ORDERED: MORPHINE SULFATE 4 MG/ML INJ IV PUSH ONE (08:45)
--- NOTE | 2018-03-16 09:22 | RADRPT ---
EXAM DATE/TIME: 03/16/2018 07:46 [place] COMPARISON: No previous studies available for comparison. INDICATIONS : Right pelvic pain and bleeding. MEDICAL HISTORY : PCOS. SURGICAL HISTORY : Cholecystectomy. ENCOUNTER: Initial ACUITY: 1 day PAIN SCORE: 7/10 LOCATION: Bilateral pelvis MEASUREMENTS: UTERUS: 8.8 x 3.5 x 5.1 cm ENDOMETRIAL STRIPE: 11 mm RIGHT OVARY: 3.8 x 1.6 x 1.7 cm LEFT OVARY: 4.2 x 1.9 x 2.5 cm FINDINGS: There is mild thickening at images presently be related to the phase of menstruation. No adnexal mass es are identified. The ovaries are normal in size and shape without evidence of focal mass. Normal Do ppler flow is present bilaterally. CONCLUSION: 1. Mild thickening of endometrial stripe otherwise unremarkable Jesse Miranda MD on March 16, 2018 at 8:54 Board Certified Radiologist. This report was verified electronically.
[2018-03-16] MEDS ORDERED: TRAM50 PO (09:44)
[2018-03-16] MEDS ORDERED: IBUP1TAB7 PO (09:44)
--- NOTE | 2018-03-16 09:45 | PD ---
Physical Exam Date Seen by Provider: Mar 16, 2018 Narrative Care was assumed at [address] Joshi. The patient is being evaluated for heavy vaginal bleeding associated with pelvic pain. Data Data Last Documented VS Vital Signs Date Time Temp Pulse Resp B/P (MAP) Pulse Ox O2 Delivery O2 Flow Rate FiO2 03/16/18 07:12 71 18 119/56 (77) 98 Room Air 03/16/18 05:53 97.5 Orders Orders Complete Blood Count With Diff (03/16/18 06:01) Comprehensive Metabolic Panel (03/16/18 06:01) Prothrombin Time / Inr (Pt) (03/16/18 06:01) Act Partial Throm Time (Ptt) (03/16/18 06:01) Lipase (03/16/18 06:01) Urinalysis - C+S If Indicated (03/16/18 06:01) Magnesium (Mg) (03/16/18 06:01) Thyroid Stimulating Hormone (03/16/18 06:01) Iv Access Insert/Monitor (03/16/18 06:01) Ecg Monitoring (03/16/18 06:01) Oximetry (03/16/18 06:01) Ed Urine Pregnancytest Poc (03/16/18 06:01) Orthostatic Vital Signs (03/16/18 06:01) Type And Screen (03/16/18 06:12) Sodium Chlor 0.9% 250 Ml Inj (Ns 250 Ml (03/16/18 06:15) Gc And Chlamydia Pcr (03/16/18 06:51) Wet Prep Profile (03/16/18 06:51) Us Pelvis Comp W Doppler (03/16/18 06:51) Sodium Chlor 0.9% 1000 Ml Inj (Ns 1000 M (03/16/18 07:00) Morphine Inj (Morphine Inj) (03/16/18 07:00) Ondansetron Inj (Zofran Inj) (03/16/18 07:00) Urine Culture (03/16/18 06:20) Morphine Inj (Morphine Inj) (03/16/18 08:45) Ketorolac Inj (Toradol Inj) (03/16/18 08:45) Labs Laboratory Tests Test 03/16/18 06:10 03/16/18 06:20 03/16/18 06:53 White Blood Count 9.4 TH/MM3 Red Blood Count 4.92 MIL/MM3 Hemoglobin 13.6 GM/DL Hematocrit 40.9 % Mean Corpuscular Volume 83.2 FL Mean Corpuscular Hemoglobin 27.6 PG Mean Corpuscular Hemoglobin Concent 33.2 % Red Cell Distribution Width 14.2 % Platelet Count 353 TH/MM3 Mean Platelet Volume 7.4 FL Neutrophils (%) (Auto) 59.3 % Lymphocytes (%) (Auto) 34.2 % Monocytes (%) (Auto) 4.5 % Eosinophils (%) (Auto) 1.5 % Basophils (%) (Auto) 0.5 % Neutrophils # (Auto) 5.6 TH/MM3 Lymphocytes # (Auto) 3.2 TH/MM3 Monocytes # (Auto) 0.4 TH/MM3 Eosinophils # (Auto) 0.1 TH/MM3 Basophils # (Auto) 0.0 TH/MM3 CBC Comment DIFF FINAL Differential Comment Prothrombin Time 10.2 SEC Prothromb Time International Ratio 1.0 RATIO Activated Partial Thromboplast Time 22.6 SEC Blood Urea Nitrogen 6 MG/DL Creatinine 0.62 MG/DL Random Glucose 118 MG/DL Total Protein 7.3 GM/DL Albumin 3.7 GM/DL Calcium Level 8.8 MG/DL Magnesium Level 2.0 MG/DL Alkaline Phosphatase 61 U/L Aspartate Amino Transf (AST/SGOT) 8 U/L Alanine Aminotransferase (ALT/SGPT) 16 U/L Total Bilirubin 0.3 MG/DL Sodium Level 142 MEQ/L Potassium Level 3.1 MEQ/L Chloride Level 106 MEQ/L Carbon Dioxide Level 24.7 MEQ/L Anion Gap 11 MEQ/L Estimat Glomerular Filtration Rate 118 ML/MIN Lipase 88 U/L Thyroid Stimulating Hormone 3rd Gen 3.610 uIU/ML Urine Color RED Urine Turbidity HAZY Urine pH 6.0 Urine Specific [place] 1.019 Urine Protein 30 mg/dL Urine Glucose (UA) NEG mg/dL Urine Ketones 40 mg/dL Urine Occult Blood LARGE Urine Nitrite NEG Urine Bilirubin NEG Urine Urobilinogen LESS THAN 2.0 MG/DL Urine Leukocyte Esterase SMALL Urine RBC /hpf Urine WBC 25 /hpf Urine Squamous Epithelial Cells 11 /hpf Urine Bacteria MOD /hpf Microscopic Urinalysis Comment CULTURE INDICATED Clue Cells (Wet Prep) NONE SEEN Vaginal Trichomonas (Wet Prep) NONE SEEN Vaginal Yeast (Wet Prep) NONE SEEN MDM Supervised Visit with JIM: No Narrative Course CBC & BMP Diagram 03/16/18 06:10 Total Protein 7.3, Albumin 3.7, Calcium Level 8.8, Magnesium Level 2.0, Alkaline Phosphatase 61, Aspartate Amino Transf (AST/SGOT) 8 L, Alanine Aminotransferase (ALT/SGPT) 16, Total Bilirubin 0.3 Last Impressions Pelvis Ultrasound 03/16/18 0651 Signed Impressions: Service Date/Time: Friday, March 16, 2018 07:46 - CONCLUSION: 1. Mild thickening of endometrial stripe otherwise unremarkable Jesse Miranda MD The patient is not anemic. She does not have an ovarian torsion or abscess. She is stable for discharge to home and follow-up with [facility] as an outpatient. 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
== END 2018-03-16 10:31 | disposition home or self-care (01) ==
LOC: NEPC 05:44
DX: N93.8 Other specified abnormal uterine and vaginal bleeding (principal); R10.2 Pelvic and perineal pain; R11.0 Nausea; R82.99 Other abnormal findings in urine; E03.9 Hypothyroidism, unspecified; E78.00 Pure hypercholesterolemia, unspecified; E28.2 Polycystic ovarian syndrome; Z98.84 Bariatric surgery status; Z88.1 Allergy status to other antibiotic agents
CPT/HCPCS: 76856; 80053; 81001; 83690; 83735; 84443; 84703; 85025; 85610; 85730; 86850; 86900; 86901; 87086; 87210; 87491; 87591; 93975; 96374; 96375; 96376; 99284; J1885; J2270; J2405; J7030